=== PATIENT | female | born 1985 | race Caucasian/White ===

== ENCOUNTER → 2019-06-01 | Outpatient (REF) | payer OTHER ==
[2019-06-01 14:04] LABS: BASO # 0.1 10^3/uL (0.0-0.2); BASO % 1.1 % (0.0-1.0); EOS # 0.5 10^3/uL (0.0-0.5); EOS % 5.8 % (0.0-3.0); HEMATOCRIT 42.9 % (36.0-47.0); HEMOGLOBIN 14.2 g/dl (12.0-15.5); LYMPH # 2.5 10^3/uL (1.5-5.0); LYMPH % 31.8 % (24.0-44.0); MEAN CORPUSCULAR HEMOGLOBIN 32.3 pg (27.0-33.0); MEAN CORPUSCULAR HGB CONC 33.1 g/dl (32.0-36.5); MEAN CORPUSCULAR VOLUME 97.5 fl (80.0-96.0); MONO # 0.8 10^3/uL (0.0-0.8); MONO % 9.7 % (0.0-5.0); NEUTROPHILS # 4.1 10^3/uL (1.5-8.5); NEUTROPHILS % 51.5 % (36.0-66.0); PLATELET COUNT, AUTOMATED 189 10^3/uL (150-450); WHITE BLOOD COUNT 7.9 10^3/uL (4.0-10.0)
[2019-06-01 14:22] LABS: ALBUMIN 3.5 GM/DL (3.2-5.2); ALT/SGPT 20 U/L (12-78); BILIRUBIN,TOTAL 0.5 MG/DL (0.2-1.0); BLOOD UREA NITROGEN 7 MG/DL (7-18); CALCIUM LEVEL 8.5 MG/DL (8.5-10.1); CARBON DIOXIDE LEVEL 28 MEQ/L (21-32); CHLORIDE LEVEL 107 MEQ/L (98-107); CHOLESTEROL LEVEL 139 MG/DL (<200); CHOLESTEROL RISK RATIO 2.316 (<5); CREATININE FOR GFR 0.94 MG/DL (0.55-1.30); FREE T4 1.01 NG/DL (0.76-1.46); GLOMERULAR FILTRATION RATE > 60.0 (>60); GLUCOSE, FASTING 77 MG/DL (70-100); HDL CHOLESTEROL 60 MG/DL (>40); LDL CHOLESTEROL 60 MG/DL (<100); NON-HDL-C 79 MG/DL; SODIUM LEVEL 137 MEQ/L (136-145); TOTAL PROTEIN 6.8 GM/DL (6.4-8.2); TRIGLYCERIDES LEVEL 96 MG/DL (<150)
== END ==
LOC: M SFHCADAM 09:46
PROVIDERS: ATTEND Physician Assistant Medical
DX: F33.2 Major depressive disorder, recurrent severe without psychotic features (principal); R63.5 Abnormal weight gain; F17.210 Nicotine dependence, cigarettes, uncomplicated

== ENCOUNTER → 2023-06-06 | Outpatient (CLI) | payer OTHER ==
[~2023-06-06] MED LIST: MACR100C43 PO; MULTCAP PO
== END ==
LOC: M SOG 07:53
PROVIDERS: ATTEND Physician Assistant
DX: M25.551 Pain in right hip (principal); M16.0 Bilateral primary osteoarthritis of hip; M47.816 Spondylosis without myelopathy or radiculopathy, lumbar region

== ENCOUNTER 2024-04-29 00:33 | Inpatient (IN) | payer SELFPAY ==
[~2024-04-29] VITALS: Ht 167.6 cm; Wt 46.4 kg
[2024-04-29] MEDS: ONDANSETRON 4MG 2ML VIAL IV ONE (01:15)
[2024-04-29] MEDS: MORPHINE 4 MG/ML 1ML VIAL IV PRN ×2 (01:15→12:52)
[2024-04-29 01:36] LABS: BASO # 0.1 10^3/uL (0.0-0.2); BASO % 0.8 % (0.0-1.0); EOS # 0.1 10^3/uL (0.0-0.5); EOS % 1.1 % (0.0-3.0); HEMATOCRIT 37.8 % (36.0-47.0); HEMOGLOBIN 12.3 g/dl (12.0-15.5); LYMPH # 3.2 10^3/uL (1.5-5.0); LYMPH % 33.3 % (24.0-44.0); MEAN CORPUSCULAR HEMOGLOBIN 29.3 pg (27.0-33.0); MEAN CORPUSCULAR HGB CONC 32.5 g/dl (32.0-36.5); MONO # 0.6 10^3/uL (0.0-0.8); MONO % 6.5 % (2.0-8.0); NEUTROPHILS # 5.6 10^3/uL (1.5-8.5); NEUTROPHILS % 57.8 % (36.0-66.0); PLATELET COUNT, AUTOMATED 205 10^3/uL (150-450); WHITE BLOOD COUNT 9.7 10^3/uL (4.0-10.0)
[2024-04-29 01:51] LABS: ETHYL ALCOHOL (ETHANOL) 0.037 % (0.000-0.010)
[2024-04-29 01:52] LABS: BLOOD UREA NITROGEN 20 MG/DL (9-23); CALCIUM LEVEL 8.7 MG/DL (8.5-10.1); CARBON DIOXIDE LEVEL 27 MMOL/L (20-31); CHLORIDE LEVEL 106 MMOL/L (98-107); CREATININE FOR GFR 0.69 MG/DL (0.55-1.30); GLOMERULAR FILTRATION RATE > 60.0 (>60); GLUCOSE, FASTING 106 MG/DL (60-100); POTASSIUM SERUM 3.8 MMOL/L (3.5-5.1); SODIUM LEVEL 140 MMOL/L (136-145)
[2024-04-29] MEDS: NS (Normal Saline) 0.9% 1,000 ML IV SCH (02:47)
[2024-04-29 02:50] LABS: HCG, SERUM QUALITATIVE NEGATIVE (NEGATIVE)
[2024-04-29] MEDS: KETAMINE HCL 200MG/20ML VIAL IV ONE ×2 (03:05→03:12)
[2024-04-29] MEDS ORDERED: propofoL 200 MG/20 ML VIAL As Ordered ONE (03:06)
[2024-04-29] MEDS: MIDAZOLAM INJ 2MG/2ML VIAL IV PRN (03:10)
[2024-04-29] MEDS: propofoL 200 MG/20 ML VIAL IV.PROC PRN (03:26)
[2024-04-29] MEDS: propofoL 200 MG/20 ML VIAL IV.PROC ONE (03:58)
[2024-04-29] MEDS: KETOROLAC 30 MG/ML 1ML VIAL IV PRN (04:24)
[2024-04-29 04:55] LABS: INR 1.16; PARTIAL THROMBOPLASTIN TIME 34.7 SECONDS (24.8-34.2); PROTHROMBIN TIME 15.1 SECONDS (12.5-14.5)
[2024-04-29] MEDS ORDERED: HOME MED LIST COMPLETE! XX SCH (05:20)
[2024-04-29] MEDS ORDERED: ONDANSETRON 4MG 2ML VIAL IV PRN ×2 (05:50→16:35)
[2024-04-29] MEDS: ENOXAPARIN 40MG/0.4ML SYRINGE (J1650 PER 10MG) SC SCH (07:17)
[2024-04-29] MEDS: PANTOPRAZOLE 40MG VIAL IV SCH (09:57)
[2024-04-29] MEDS ORDERED: LORazepam 2 MG TAB PO PRN (11:25)
[2024-04-29] MEDS: THIAMINE 100 MG TAB PO SCH (11:44)
[2024-04-29] MEDS: MULTIVITAMINS/MINERALS THERAP 1 TAB PO SCH (11:44)
[2024-04-29] MEDS: FOLIC ACID 1MG TAB PO SCH (11:44)
[2024-04-29 12:30] VITALS: BP 172/87; TEMP 98; O2SAT 99
[2024-04-29] MEDS ORDERED: LIDOCAINE 2% 100MG/5ML SDV (FOR ANES.) As Ordered ONE (13:33)
[2024-04-29] MEDS ORDERED: ONDANSETRON 4MG 2ML VIAL As Ordered ONE (13:33)
[2024-04-29] MEDS ORDERED: fentaNYL 100 MCG/2 ML INJECTION As Ordered ONE (14:02)
[2024-04-29] MEDS ORDERED: MIDAZOLAM INJ 2MG/2ML VIAL As Ordered ONE (14:02)
[2024-04-29] MEDS ORDERED: ROPIvacaine 0.5% 30ML VIAL PN ONE (14:20)
[2024-04-29] MEDS ORDERED: MIDAZOLAM INJ 2MG/2ML VIAL IV PRN (14:20)
[2024-04-29] MEDS ORDERED: dexAMETHasone 10MG/1ML VIAL PRES.FREE PN ONE (14:20)
[2024-04-29] MEDS: ceFAZolin 2 GM/D5W 50 ML IV BAG As Ordered ONE (14:52)
[2024-04-29] MEDS ORDERED: ACETAMINOPHEN 1000MG/100ML IV BAG As Ordered ONE (14:57)
[2024-04-29] MEDS ORDERED: dexmedeTOMIDine (4MCG/ML)200MCG/50ML BTL (PRECEDEX) As Ordered ONE (14:59)
[2024-04-29] MEDS ORDERED: HYDROMORPHONE HCL 0.5 MG/ 0.5 ML SYRINGE IV PRN (16:35)
[2024-04-29] MEDS ORDERED: LR 1,000 ML IV SCH (16:35)
[2024-04-29] MEDS ORDERED: fentaNYL 100 MCG/2 ML INJECTION IV PRN (16:35)
[2024-04-29] MEDS: oxyCODONE 5MG TAB PO PRN (17:07)
[2024-04-29 17:30] VITALS: BP 138/96; TEMP 97.1; O2SAT 98
[2024-04-29] MEDS ORDERED: CEPH500C PO (17:42)
[2024-04-29] MEDS ORDERED: DICL50TA2 PO (17:42)
[2024-04-29] MEDS ORDERED: ceFAZolin SOD 2 GM in IV 1 EA IV SCH (23:00)
[2024-04-30] MEDS ORDERED: CEPHALEXIN 500 MG CAP PO SCH (21:00)
== END 2024-04-29 18:18 | disposition home or self-care (01) | DRG 315 ==
LOC: M ED 00:33 → M ED INP 03:42 → M MS4PR 12:35
PROVIDERS: ADMIT Student in an Organized Health Care Education/Training Program; ATTEND Student in an Organized Health Care Education/Training Program
PROC: 0PSH04Z Reposition Right Radius with Internal Fixation Device, Open Approach (ICD-10-PCS; principal; 2024-04-29 07:00)
DX: S52.501A Unspecified fracture of the lower end of right radius, initial encounter for closed fracture (principal); S52.611A Displaced fracture of right ulna styloid process, initial encounter for closed fracture; W00.0XXA Fall on same level due to ice and snow, initial encounter; Y92.9 Unspecified place or not applicable

== ENCOUNTER → 2024-05-08 | Outpatient (CLI) | payer SELFPAY ==
[~2024-05-08] MED LIST changes: +CEPH500C PO; +DICL50TA2 PO
== END ==
LOC: M SOG 07:51
PROVIDERS: ATTEND Orthopaedic Surgery
DX: Z47.89 Encounter for other orthopedic aftercare (principal); Z53.9 Procedure and treatment not carried out, unspecified reason

== ENCOUNTER → 2024-05-12 | Outpatient (CLI) | payer SELFPAY | LOC: M SOG 07:52 | PROVIDERS: ATTEND Orthopaedic Surgery | DX: S52.501D Unspecified fracture of the lower end of right radius, subsequent encounter for closed fracture with routine healing (principal); S52.611D Displaced fracture of right ulna styloid process, subsequent encounter for closed fracture with routine healing; Z47.89 Encounter for other orthopedic aftercare ==

== ENCOUNTER → 2024-05-19 | Outpatient (CLI) | payer SELFPAY | LOC: M SOG 07:50 | PROVIDERS: ATTEND Orthopaedic Surgery | DX: Z47.89 Encounter for other orthopedic aftercare (principal); S52.571A Other intraarticular fracture of lower end of right radius, initial encounter for closed fracture; Z53.9 Procedure and treatment not carried out, unspecified reason ==

== ENCOUNTER → 2024-05-21 | Outpatient (CLI) | payer SELFPAY | LOC: M SOG 08:29 | PROVIDERS: ATTEND Orthopaedic Surgery | DX: S52.571D Other intraarticular fracture of lower end of right radius, subsequent encounter for closed fracture with routine healing (principal); Z47.89 Encounter for other orthopedic aftercare ==

== ENCOUNTER → 2024-06-04 | Outpatient (CLI) | payer SELFPAY | LOC: M SOG 07:56 | PROVIDERS: ATTEND Orthopaedic Surgery | DX: S52.571D Other intraarticular fracture of lower end of right radius, subsequent encounter for closed fracture with routine healing (principal); Z53.9 Procedure and treatment not carried out, unspecified reason ==

== ENCOUNTER → 2024-06-10 | Outpatient (CLI) | payer SELFPAY | LOC: M SOG 07:58 | PROVIDERS: ATTEND Orthopaedic Surgery | DX: S52.571D Other intraarticular fracture of lower end of right radius, subsequent encounter for closed fracture with routine healing (principal) ==

== ENCOUNTER → 2024-08-18 | Outpatient (CLI) | payer OTHER | LOC: M SOG 06:53 | PROVIDERS: ATTEND Orthopaedic Surgery | DX: S52.571D Other intraarticular fracture of lower end of right radius, subsequent encounter for closed fracture with routine healing (principal) ==